=== PATIENT | male | born 1980 | race Two or more races ===

== ENCOUNTER 2023-11-30 14:17 | Outpatient (RCR) | payer OTHER, SELFPAY | END 2023-11-30 23:59 | disposition home or self-care (01) | LOC: RPT 14:17 | PROVIDERS: ATTENDING PHYSICIAN Orthopaedic Surgery Hand Surgery | DX: Z47.89 Encounter for other orthopedic aftercare (principal); Z73.6 Limitation of activities due to disability; M62.81 Muscle weakness (generalized); M25.511 Pain in right shoulder | CPT/HCPCS: 97010; 97110; 97140; 97163 ==

== ENCOUNTER 2023-12-21 14:11 | Outpatient (RCR) | payer OTHER, SELFPAY | END 2023-12-21 23:59 | disposition home or self-care (01) | LOC: RPT 14:11 | PROVIDERS: ATTENDING PHYSICIAN Orthopaedic Surgery Hand Surgery | DX: Z47.89 Encounter for other orthopedic aftercare (principal); Z73.6 Limitation of activities due to disability; M62.81 Muscle weakness (generalized); M25.511 Pain in right shoulder | CPT/HCPCS: 97010; 97110; 97112; 97140 ==

== ENCOUNTER 2024-01-18 12:06 | Outpatient (RCR) | payer OTHER, SELFPAY | END 2024-01-18 23:59 | disposition home or self-care (01) | LOC: RPT 12:06 | PROVIDERS: ATTENDING PHYSICIAN Orthopaedic Surgery Hand Surgery | DX: Z47.89 Encounter for other orthopedic aftercare (principal); Z73.6 Limitation of activities due to disability; M62.81 Muscle weakness (generalized); M25.511 Pain in right shoulder | CPT/HCPCS: 97010; 97110; 97112; 97140 ==

== ENCOUNTER 2024-02-28 15:49 | Outpatient (RCR) | payer OTHER, SELFPAY | END 2024-02-28 15:50 | disposition home or self-care (01) | LOC: RPT 15:49 | PROVIDERS: ATTENDING PHYSICIAN Orthopaedic Surgery Hand Surgery | DX: Z47.89 Encounter for other orthopedic aftercare (principal); Z73.6 Limitation of activities due to disability; M62.81 Muscle weakness (generalized); M25.511 Pain in right shoulder | CPT/HCPCS: 97010; 97110; 97112; 97140 ==

== ENCOUNTER → 2024-03-01 13:31 | Outpatient (REF) | payer OTHER, SELFPAY | LOC: MRI 3T 13:31 | PROVIDERS: ATTENDING PHYSICIAN Orthopaedic Surgery Hand Surgery | DX: M25.512 Pain in left shoulder (principal) | CPT/HCPCS: 23350; 73040; 73222 ==

== ENCOUNTER → 2024-05-29 06:16 | Day surgery (SDC) | payer OTHER, SELFPAY | LOC: GI 06:16 | PROVIDERS: ATTENDING PHYSICIAN Surgery | DX: K62.5 Hemorrhage of anus and rectum (principal); K57.30 Diverticulosis of large intestine without perforation or abscess without bleeding; D12.3 Benign neoplasm of transverse colon; K64.9 Unspecified hemorrhoids | CPT/HCPCS: 45380; 88305 ==

== ENCOUNTER 2024-07-23 06:53 | Day surgery (SDC) | payer OTHER, SELFPAY ==
[2024-07-23] VITALS (7 sets, daily range): BP systolic 123–134; BP diastolic 80–86; BMI 26.9
[2024-07-23] MEDS: TYLENOL 1000 MG PO (08:59)
[2024-07-23] MEDS: TRANSDERM-SCOP 1 PATCH TRANSDERM (08:59)
[2024-07-23] MEDS: CELEBREX 200 MG PO (08:59)
--- NOTE | 2024-07-23 09:14 | PTCARENOTE ---
No IV fluids started due to IVF shortage. Int to R hand only.
== END 2024-07-23 13:47 | disposition home or self-care (01) ==
LOC: SDS 06:53
PROVIDERS: ATTENDING PHYSICIAN Orthopaedic Surgery Hand Surgery
DX: M75.122 Complete rotator cuff tear or rupture of left shoulder, not specified as traumatic (principal); M75.42 Impingement syndrome of left shoulder; S43.432A Superior glenoid labrum lesion of left shoulder, initial encounter; X58.XXXA Exposure to other specified factors, initial encounter
CPT/HCPCS: 29827; 29826; 29824; 29807; C1713

== ENCOUNTER 2024-08-26 10:04 | Outpatient (RCR) | payer OTHER, SELFPAY | END 2024-08-26 23:59 | disposition home or self-care (01) | LOC: RPT 10:04 | PROVIDERS: ATTENDING PHYSICIAN Physician Assistant | DX: Z47.89 Encounter for other orthopedic aftercare (principal); Z73.6 Limitation of activities due to disability; M62.81 Muscle weakness (generalized); M25.512 Pain in left shoulder | CPT/HCPCS: 97010; 97110; 97140; 97163 ==

== ENCOUNTER 2024-09-19 11:09 | Outpatient (RCR) | payer OTHER, SELFPAY | END 2024-09-19 23:59 | disposition home or self-care (01) | LOC: RPT 11:09 | PROVIDERS: ATTENDING PHYSICIAN Physician Assistant | DX: Z47.89 Encounter for other orthopedic aftercare (principal); Z73.6 Limitation of activities due to disability; M62.81 Muscle weakness (generalized); M25.512 Pain in left shoulder | CPT/HCPCS: 97010; 97110; 97140 ==

== ENCOUNTER 2024-10-31 10:08 | Outpatient (RCR) | payer OTHER, SELFPAY | END 2024-10-31 23:59 | disposition home or self-care (01) | LOC: RPT 10:08 | PROVIDERS: ATTENDING PHYSICIAN Physician Assistant | DX: Z47.89 Encounter for other orthopedic aftercare (principal); Z73.6 Limitation of activities due to disability; M62.81 Muscle weakness (generalized); M25.512 Pain in left shoulder; M79.602 Pain in left arm | CPT/HCPCS: 97010; 97110; 97140 ==

== ENCOUNTER 2024-11-28 10:25 | Outpatient (RCR) | payer OTHER, SELFPAY | END 2024-11-28 23:59 | disposition home or self-care (01) | LOC: RPT 10:25 | PROVIDERS: ATTENDING PHYSICIAN Physician Assistant | DX: Z47.89 Encounter for other orthopedic aftercare (principal); Z73.6 Limitation of activities due to disability; M62.81 Muscle weakness (generalized); M25.512 Pain in left shoulder; M79.602 Pain in left arm | CPT/HCPCS: 97010; 97110; 97140 ==

== ENCOUNTER 2024-12-19 10:02 | Outpatient (RCR) | payer OTHER, SELFPAY | END 2024-12-19 23:59 | disposition home or self-care (01) | LOC: RPT 10:02 | PROVIDERS: ATTENDING PHYSICIAN Physician Assistant | DX: Z47.89 Encounter for other orthopedic aftercare (principal); Z73.6 Limitation of activities due to disability; M62.81 Muscle weakness (generalized); M25.512 Pain in left shoulder; M79.602 Pain in left arm | CPT/HCPCS: 97010; 97110; 97140 ==

== ENCOUNTER 2025-01-02 10:05 | Outpatient (RCR) | payer OTHER, SELFPAY | END 2025-01-02 23:59 | disposition home or self-care (01) | LOC: RPT 10:05 | PROVIDERS: ATTENDING PHYSICIAN Physician Assistant | DX: Z47.89 Encounter for other orthopedic aftercare (principal); Z73.6 Limitation of activities due to disability; M62.81 Muscle weakness (generalized); M25.512 Pain in left shoulder; M79.602 Pain in left arm | CPT/HCPCS: 97010; 97110; 97140 ==

== ENCOUNTER → 2025-09-15 08:38 | Outpatient (REF) | payer OTHER, SELFPAY | LOC: RAD 08:38 | PROVIDERS: ATTENDING PHYSICIAN Internal Medicine | DX: F41.1 Generalized anxiety disorder (principal); E78.2 Mixed hyperlipidemia; R00.2 Palpitations; R29.818 Other symptoms and signs involving the nervous system | CPT/HCPCS: 75571 ==